=== PATIENT | male | born 1935 | race Two or more races ===

== ENCOUNTER 2018-03-08 17:11 | Emergency (ER) | payer MEDICARE ==
[~2018-03-08] VITALS: Ht 172.7 cm; Wt 75.0 kg
[2018-03-08] MEDS ORDERED: LORAZEPAM 1MG TABLET PO ONE (19:00)
[2018-03-08] MEDS ORDERED: LORAZEPAM 2MG/ML CPJ IM ONE ×2 (19:15→20:45)
[2018-03-09] MEDS ORDERED: LORAZEPAM 2MG/ML CPJ IM ONE
[2018-03-09] MEDS ORDERED: HALOPERIDOL LACTATE 5MG/ML VIAL IM ONE
[2018-03-09 03:15] VITALS: BP 129/66
== END 2018-03-09 03:45 ==
LOC: ER 17:11
DX: G31.9 Degenerative disease of nervous system, unspecified (principal); R45.1 Restlessness and agitation; E78.5 Hyperlipidemia, unspecified; J44.9 Chronic obstructive pulmonary disease, unspecified; F41.9 Anxiety disorder, unspecified; F20.9 Schizophrenia, unspecified; E78.00 Pure hypercholesterolemia, unspecified; F03.90 Unspecified dementia, unspecified severity, without behavioral disturbance, psychotic disturbance, mood disturbance, and anxiety; W19.XXXA Unspecified fall, initial encounter; Y93.89 Activity, other specified; Y92.89 Other specified places as the place of occurrence of the external cause; Y99.8 Other external cause status
CPT/HCPCS: 70450; 72125; 73522; 96372; 99284; J1630; J2060